=== PATIENT | female | born 1965 | race Two or more races ===

== ENCOUNTER 2016-11-09 09:40 | Emergency (ER) | payer SELFPAY ==
[~2016-11-09] VITALS: Ht 160 cm; Wt 64.9 kg
[2016-11-09 10:25] LABS: Basophils # (auto) 0 uL; Basophils % (auto) 0.8 % (0.0-2.0); CONDITION Y; DEFINITIVE SEE PRINTOUT; Eosinophils # (auto) 0.1 uL; Eosinophils % (auto) 1.2 % (0.0-7.0); Hemoglobin 10.4 g/dL (12.2-16.2); Lymphocytes # (auto) 1.2 uL; Mean Corpuscular Hemoglobin 28.7 pg (28.0-32.0); Mean Corpuscular Hgb Conc. 32.4 g/dL (32.0-36.0); Mean Corpuscular Volume 88.6 fL (80.0-100.0); Mean Platelet Volume 9.5 fL (7.4-10.4); Monocytes # (auto) 0.4 uL; Monocytes % (auto) 6.7 % (0.0-12.0); Neutrophils % (auto) 70.3 % (37.0-80.0); Platelet Count (auto) 273 10^3/uL (140-450); SUSPECT SEE PRINTOUT; White Blood Cell 5.7 10^3/uL (4.4-10.8)
[2016-11-09 10:41] LABS: Red Cell Distribution Width 28.1 % (11.6-16.0)
[2016-11-09 11:09] LABS: Albumin 3.4 g/dL (3.4-5.0); BUN/Creatinine Ratio 17.9; Bilirubin, Total 0.8 mg/dL (0.2-1.0); Calcium 8.2 mg/dL (8.5-10.1); Potassium 3.6 mmol/L (3.5-5.1); Total Protein 7.7 g/dL (6.4-8.2)
[2016-11-09 11:15] VITALS: BP 155/105
[2016-11-09 11:52] LABS: Anisocytosis Slight; Giant Platelets Moderate; Platelet Estimate Adequate
[2016-11-09 13:13] LABS: Urine Bilirubin Negative (Negative); Urine Color PINK (Yellow); Urine Glucose Normal (Normal); Urine Ketone Negative (Negative); Urine Nitrite Negative (Negative); Urine RBC <1 /hpf (0 - 4); Urine Urobilinogen Normal (Negative)
[2016-11-09 13:18] LABS: Urine Blood 3+ /uL (Negative)
== END 2016-11-09 13:08 | disposition home or self-care (01) ==
LOC: ER 09:48
DX: D25.9 Leiomyoma of uterus, unspecified (principal); I10 Essential (primary) hypertension; E78.5 Hyperlipidemia, unspecified
CPT/HCPCS: 36415; 76830; 76856; 80053; 81001; 84702; 85025